=== PATIENT | female | born 1985 | race Caucasian/White ===

== ENCOUNTER 2021-10-11 14:12 | Outpatient (CLI) | payer OTHER | END 2021-10-11 14:13 | disposition home or self-care (01) | LOC: BICMAMMO 14:12 | PROVIDERS: ATTEND Family Medicine | DX: N63.13 Unspecified lump in the right breast, lower outer quadrant (principal) | CPT/HCPCS: 77066; G0279 ==

== ENCOUNTER 2021-11-19 10:55 | Emergency (ER) | payer OTHER, SELFPAY ==
[2021-11-19] MEDS ORDERED: Ketorolac Tromethamine 30 MG/ML VIAL ONE (12:32)
[2021-11-19] MEDS ORDERED: HYDROcodone/Acetaminophen 5/325 mg Tablet ONE (12:42)
== END 2021-11-19 15:14 | disposition home or self-care (01) ==
LOC: ERS 10:55
DX: S82.852A Displaced trimalleolar fracture of left lower leg, initial encounter for closed fracture (principal); X58.XXXA Exposure to other specified factors, initial encounter
CPT/HCPCS: 29505; J1885

== ENCOUNTER 2021-11-26 10:33 | Outpatient (CLI) | payer OTHER | END 2021-11-26 10:34 | disposition home or self-care (01) | LOC: LABBT 10:33 | PROVIDERS: ATTEND Orthopaedic Surgery | DX: Z20.822 Contact with and (suspected) exposure to COVID-19 (principal) | CPT/HCPCS: 87811 ==

== ENCOUNTER 2021-11-27 12:30 | Day surgery (SDC) | payer OTHER ==
[2021-11-26 11:16] VITALS: BMI 31.1
[2021-11-27] MEDS ORDERED: Midazolam HCl 2 mg/2 ml Vial ONE (14:41)
[2021-11-27] MEDS ORDERED: Fentanyl 100 MCG/2 ML VIAL ONE (14:41)
[2021-11-27] MEDS ORDERED: Famotidine/PF 20 mg/2ml Vial ONE (15:02)
[2021-11-27] MEDS ORDERED: Sodium Chloride 0.9% 100 ML ONE (15:24)
[2021-11-27] MEDS ORDERED: CEFAZOLIN 2 GM VIAL ONE (15:24)
[2021-11-27] MEDS ORDERED: fentaNYL Citrate/PF 100 MCG/2 ML SYRINGE ONE (15:30)
[2021-11-27] MEDS ORDERED: PROPOFOL 200 MG/20 ML VIAL ONE (15:50)
[2021-11-27] MEDS ORDERED: Lidocaine 1% PF 5 ML VIAL ONE (15:50)
[2021-11-27] MEDS ORDERED: Ondansetron PF 4 MG/2 ML Vial ONE (15:50)
[2021-11-27] MEDS ORDERED: Bupivacaine HCl 0.5%/Epinephrine 1:200,000/PF 30 ml Vial ONE (15:50)
== END 2021-11-27 18:10 | disposition home or self-care (01) ==
LOC: SDC 12:30
PROVIDERS: ATTEND Orthopaedic Surgery
PROC: 0QSH04Z Reposition Left Tibia with Internal Fixation Device, Open Approach (ICD-10-PCS; principal; 2021-11-27)
PROC: 0QSK04Z Reposition Left Fibula with Internal Fixation Device, Open Approach (ICD-10-PCS; principal; 2021-11-27)
PROC: 3E0T3BZ Introduction of Anesthetic Agent into Peripheral Nerves and Plexi, Percutaneous Approach (ICD-10-PCS; principal; 2021-11-27)
DX: S82.842A Displaced bimalleolar fracture of left lower leg, initial encounter for closed fracture (principal); G89.29 Other chronic pain; Z87.891 Personal history of nicotine dependence; Z79.899 Other long term (current) drug therapy; Z88.6 Allergy status to analgesic agent; Z98.84 Bariatric surgery status; X50.1XXA Overexertion from prolonged static or awkward postures, initial encounter; W10.8XXA Fall (on) (from) other stairs and steps, initial encounter
CPT/HCPCS: 76000; C1713; J0690; J2250; J2405; J2704; J3010; J3490; S0028